=== PATIENT | male | born 1985 | race Caucasian/White ===

== ENCOUNTER 2025-05-16 12:11 | Emergency (ER) | payer MEDICARE | END 2025-05-16 12:45 | disposition home or self-care (01) | LOC: NAV ERS 12:11 | DX: E10.40 Type 1 diabetes mellitus with diabetic neuropathy, unspecified (principal); E10.65 Type 1 diabetes mellitus with hyperglycemia; R60.0 Localized edema; F17.210 Nicotine dependence, cigarettes, uncomplicated; Z79.4 Long term (current) use of insulin; Z79.82 Long term (current) use of aspirin; Z79.899 Other long term (current) drug therapy | CPT/HCPCS: 36416; 99283 ==

== ENCOUNTER 2025-06-30 14:26 | Emergency (ER) | payer MEDICARE ==
[2025-06-30] MEDS ORDERED: Ketorolac Tromethamine 30 MG (1 mL) VIAL ONE (15:57)
[2025-06-30] MEDS ORDERED: Acetaminophen 500 MG TAB ONE (16:18)
== END 2025-06-30 16:20 | disposition home or self-care (01) ==
LOC: NAV ERS 14:26
DX: S49.91XA Unspecified injury of right shoulder and upper arm, initial encounter (principal); G89.11 Acute pain due to trauma; F17.210 Nicotine dependence, cigarettes, uncomplicated; E10.9 Type 1 diabetes mellitus without complications; Z79.4 Long term (current) use of insulin; Z79.82 Long term (current) use of aspirin; Z79.899 Other long term (current) drug therapy; W55.22XA Struck by cow, initial encounter; Y93.89 Activity, other specified
CPT/HCPCS: 96372; 99283; J1885

== ENCOUNTER 2025-09-03 13:46 | Emergency (ER) | payer MEDICARE ==
[2025-09-03 15:06] LABS: #Basophils 0.5 thou/uL (0.0-0.2); #Eosinophils 0.6 thou/uL (0.0-0.7); #Lymphocytes 2.8 thou/uL (1.20-3.40); #Monocytes 0.8 thou/uL (0.11-0.59); #Neutrophils 5.1 thou/uL (1.40-6.50); %Basophils 5.4 % (0.0-1.0); %Eosinophils 5.7 % (0.0-10.0); %Lymphocytes 28.9 % (21.0-51.0); %Monocytes 7.8 % (0.0-10.0); %Neutrophils 52.2 % (42.0-75.0); Hematocrit 44.6 % (42.0-52.0); Hemoglobin 15.2 g/dL (14.0-18.0); Mean Corpuscular Hemoglobin 32.0 pg (27.0-31.0); Mean Corpuscular Volume 93.9 fl (78.0-98.0); Platelet Count 354 10x3/uL (130-400); Red Blood Cell (RBC) Count 4.75 mill/uL (4.70-6.10); White Blood Cell (WBC) Count 9.7 10x3/uL (4.8-10.8)
[2025-09-03 15:16] LABS: ALT (SGPT) 17 U/L (Less than 45); AST (SGOT) 21 U/L (11-34); Albumin 3.4 g/dL (3.1-4.5); Alkaline Phosphatase 120 U/L (40-110); Anion Gap 18 mmol/L (10-20); BUN (Urea Nitrogen) 31 mg/dL (8.9-20.6); Bilirubin, Total 0.6 mg/dL (0.3-1.2); Calc. Creatinine Clearance 0 mL/min (70-130); Calcium 9.3 mg/dL (7.8-10.44); Carbon Dioxide 19 mmol/L (22-29); Chloride 101 mmol/L (98-107); Globulin 3.5 g/dL (2.4-3.5); Glucose 276 mg/dL (70-105); Lipase 11 U/L (8-78); Potassium 4.0 mmol/L (3.5-5.1); Sodium 134 mmol/L (136-145)
[2025-09-03 15:23] LABS: Troponin I Less than 0.010 ng/mL (< 0.028)
[2025-09-03 16:06] LABS: CAUTI Indications for Culture Alt mental st,lethar; Glucose, Urine (Dipstick) >=1000 mg/dL (Negative); Leukocyte Negative (Negative); Protein, Urine (Dipstick) 100 mg/dL (Neg-Trace); RBC/HPF None Seen HPF (0-3); Specific Gravity, Urine 1.010 (1.005-1.030); WBC/HPF 0-3 HPF (0-3)
[2025-09-03 16:08] LABS: Urine Culture Reflex No No
[2025-09-03 16:38] LABS: Cocaine Metabolite Screen Negative (Negative); THC/Cannabinoid Screen Negative (Negative); Tricyclic Screen Negative (Negative)
== END 2025-09-03 16:33 | disposition home or self-care (01) ==
LOC: NAV ERS 13:46
DX: R94.6 Abnormal results of thyroid function studies (principal); E86.0 Dehydration; E10.65 Type 1 diabetes mellitus with hyperglycemia; F17.210 Nicotine dependence, cigarettes, uncomplicated; Z79.82 Long term (current) use of aspirin
CPT/HCPCS: 71046; 80306; 81001; 83690; 84484; 85379; 93005; J7030; J7120; 80053; 84443; 85025; 96360

== ENCOUNTER 2025-09-29 18:51 | Emergency (ER) | payer MEDICARE | END 2025-09-29 19:08 | disposition left against medical advice (07) | LOC: NAV ERS 18:51 | DX: Z53.21 Procedure and treatment not carried out due to patient leaving prior to being seen by health care provider (principal) ==